=== PATIENT | male | born 1940 | race Caucasian/White ===

== ENCOUNTER 2021-10-09 17:00 | Observation (INO) | payer MEDICARE, BC ==
[2021-10-09 18:06] LABS: #Eosinphils 0.1 10x3/uL (0.0-0.5); #Monocytes 0.9 10x3/uL (0.0-1.1); #Neutrophils 4.4 10x3/uL (1.5-8.4); %Basophils 0.1 % (0.0-2.0); %Eosinophils 1.4 % (0.0-6.0); %Lymphocytes 23.4 % (18.0-47.0); %Monocytes 12.3 % (0.0-10.0); %Neutrophils 62.5 % (40.0-75.0); Hemoglobin 14.8 g/dL (13.5-17.5); Mean Corpuscular HGB CONC 34.7 g/dL (32.0-36.0); Mean Corpuscular Hemoglobin 32.7 pg (27.0-33.0); Mean Corpuscular Volume 94.2 fl (81.2-95.1); Mean Platelet Volume 8.5 fl (7.4-10.4); Platelet Count 242 10x3/uL (150-450); RBC Distribution Width 13.6 % (11.5-14.5); Red Blood Cell (RBC) Count 4.52 10x6/uL (4.32-5.72); White Blood Cell (WBC) Count 7.1 10x3/uL (3.5-10.5)
[2021-10-09 18:12] LABS: ALT (SGPT) 24 U/L (8-55); AST (SGOT) 21 U/L (5-34); Alkaline Phosphatase 56 U/L (40-110); Anion Gap 11 mmol/L (10-20); BUN (Urea Nitrogen) 10 mg/dL (8.4-25.7); Bilirubin, Total 0.5 mg/dL (0.2-1.2); CK (CPK) 37 U/L (30-200); Calc. Creatinine Clearance 0 mL/min (70-130); Carbon Dioxide 25 mmol/L (23-31); Chloride 93 mmol/L (98-107); Globulin 2.5 g/dL (2.4-3.5); Glucose 104 mg/dL (83-110); Potassium 3.7 mmol/L (3.5-5.1); Protein, Total 6.5 g/dL (5.8-8.1); Sodium 125 mmol/L (136-145)
[2021-10-09 19:02] LABS: Bilirubin Neg (Negative); Blood, Urine Negative (Negative); Clarity Clear (Clear); Glucose, Urine (Dipstick) Normal (Negative); Ketone, Urine Negative (Negative); Leukocyte 25 (Negative); Nitrite Negative (Negative); Protein, Urine (Dipstick) Negative (Neg-Trace); Urobilinogen Normal mg/dL (Less than 2)
[2021-10-09 19:24] LABS: Bacteria/HPF None Seen HPF (None Seen); RBC/HPF None Seen HPF (0-3); Squamous Epithelial 0-3 HPF (0-3); WBC/HPF 0-3 HPF (0-3)
[2021-10-09] MEDS ORDERED: Aspirin Chewable 81 MG TAB ONE (19:50)
[2021-10-09] MEDS ORDERED: Guaifenesin DM 100-10/5 ML UDCUP PO PRN (19:55)
[2021-10-09] MEDS ORDERED: Acetaminophen 325 MG TAB PO PRN (19:55)
[2021-10-09] MEDS ORDERED: Senokot S 8.6-50 MG TAB PO PRN (19:55)
[2021-10-09] MEDS ORDERED: Nitroglycerin 0.4 MG TAB (25 Tab Bottle) SL PRN (19:55)
[2021-10-09] MEDS ORDERED: Calcium Carbonate 500 MG ChewTAB PO PRN (19:55)
[2021-10-09] MEDS ORDERED: Ondansetron PF 4 MG/2 ML Vial IVP PRN (19:55)
[2021-10-09] MEDS ORDERED: diphenhydrAMINE 25 MG CAP PO SCH (21:00)
[2021-10-09] MEDS ORDERED: DIPHENHYDRAMINE PO SCH (21:00)
[2021-10-09] MEDS ORDERED: Melatonin 3 MG TAB PO SCH (21:00)
[2021-10-09] MEDS ORDERED: [UNRECOGNIZED DRUG - OTHER] PO SCH (21:00)
[2021-10-09] MEDS ORDERED: Timolol 0.5% Ophth Soln 5 ml Bottle EA EYE SCH (21:00)
[2021-10-09] MEDS ORDERED: ALPRAZolam 0.25 MG TAB PO SCH (21:00)
[2021-10-09] MEDS ORDERED: ACETAMINOPHEN PO SCH (21:00)
[2021-10-09] MEDS ORDERED: levETIRAcetam 500 MG TAB PO SCH (21:00)
[2021-10-09] MEDS ORDERED: Atorvastatin Calcium 40 MG TAB PO SCH (21:00)
[2021-10-09] MEDS ORDERED: Tamsulosin HCl 0.4 MG CAP PO SCH (21:00)
[2021-10-09] MEDS ORDERED: Acetaminophen 500 MG TAB PO SCH (21:00)
[2021-10-09] MEDS ORDERED: diphenhydrAMINE 25 MG CAP ONE (21:54)
[2021-10-09] MEDS ORDERED: Apixaban 5 MG TAB ONE (21:54)
[2021-10-09] MEDS ORDERED: Amlodipine 5 MG TAB ONE (21:55)
[2021-10-09] MEDS ORDERED: Acetaminophen 500 MG TAB ONE (21:55)
[2021-10-09] MEDS ORDERED: levETIRAcetam 500 MG TAB ONE (21:55)
[2021-10-09] MEDS: Apixaban 5 MG TAB PO SCH (22:00)
[2021-10-09] MEDS: Amlodipine 5 MG TAB PO SCH (22:00)
[2021-10-09 22:32] LABS: Troponin I Less than 0.010 ng/mL (< 0.028)
[2021-10-09] MEDS ORDERED: Atorvastatin Calcium 40 MG TAB ONE (22:47)
[2021-10-09 23:46] VITALS: BMI 23.2
[2021-10-10 05:02] LABS: Anion Gap 11 mmol/L (10-20); BUN (Urea Nitrogen) 7 mg/dL (8.4-25.7); Calc. Creatinine Clearance 87 mL/min (70-130); Carbon Dioxide 28 mmol/L (23-31); Cardiac Risk 2.1 (Less than 4.5); Chloride 98 mmol/L (98-107); Cholesterol 124 mg/dl (< 200 Desired); Glucose 99 mg/dL (83-110); HDL Cholesterol 60 mg/dL (>60 Neg Risk); LDL Cholesterol, Calculated 54 mg/dL; Potassium 3.8 mmol/L (3.5-5.1); Sodium 133 mmol/L (136-145); Triglycerides 51 mg/dL (Less than 150)
[2021-10-10] MEDS ORDERED: Carvedilol 6.25 MG TAB PO SCH ×2 (08:15→17:00)
[2021-10-10] MEDS: Apixaban 5 MG TAB PO SCH (08:53)
[2021-10-10] MEDS: Amlodipine 5 MG TAB PO SCH (08:58)
[2021-10-10] MEDS ORDERED: Ascorbic Acid 500 mg Chewable Tablet PO SCH (09:00)
[2021-10-10] MEDS ORDERED: Aspirin Chewable 81 MG TAB PO SCH (09:00)
[2021-10-10] MEDS ORDERED: levETIRAcetam 500 MG TAB PO SCH (09:00)
[2021-10-10] MEDS ORDERED: Amlodipine 5 MG TAB PO SCH (09:00)
[2021-10-10] MEDS ORDERED: Zinc Gluconate 50 MG TAB PO SCH (09:00)
[2021-10-10] MEDS ORDERED: Potassium Chloride 10 MEQ TAB PO SCH (09:00)
[2021-10-10] MEDS ORDERED: Valsartan 80 MG TAB PO SCH (09:00)
[2021-10-10] MEDS ORDERED: hydrOXYzine 25 MG TAB PO SCH (10:00)
[2021-10-10 15:19] LABS: Creatinine, Urine 23.69 mg/dL (63-166); Potassium, Urine 10.6 mmol/L
[2021-10-10 16:19] VITALS: BP 134/69; TEMP 98.1
[2021-10-10 19:49] LABS: SARS-CoV-2 PCR by NAA Not Detected (NotDetected)
== END 2021-10-10 17:48 | disposition home or self-care (01) ==
LOC: CSHERS 17:00 → INTOOBSV 20:34 → CSHERHOLD 20:34 → CSHTELE 23:37
PROVIDERS: ADMIT Student in an Organized Health Care Education/Training Program; ATTEND Family Medicine
DX: I25.118 Atherosclerotic heart disease of native coronary artery with other forms of angina pectoris (principal); E87.1 Hypo-osmolality and hyponatremia; I10 Essential (primary) hypertension; E78.5 Hyperlipidemia, unspecified; Z95.1 Presence of aortocoronary bypass graft; Z95.5 Presence of coronary angioplasty implant and graft; G40.909 Epilepsy, unspecified, not intractable, without status epilepticus; F41.9 Anxiety disorder, unspecified; F32.A Depression, unspecified; Z95.0 Presence of cardiac pacemaker; I48.20 Chronic atrial fibrillation, unspecified; Z79.01 Long term (current) use of anticoagulants; K21.9 Gastro-esophageal reflux disease without esophagitis; N40.0 Benign prostatic hyperplasia without lower urinary tract symptoms; Z79.82 Long term (current) use of aspirin; Z20.822 Contact with and (suspected) exposure to COVID-19
CPT/HCPCS: 71045; 80048; 80053; 80061; 82550; 82570; 83930; 83935; 84133; 84300; 84443; 84484 ×3; 85025; 93005 ×2; G0378 ×3; U0003; U0005; 81003; 81015; 93010